=== PATIENT | male | born 1980 | race Caucasian/White ===

== ENCOUNTER 2019-08-09 12:47 | Emergency (ER) | payer OTHER ==
[~2019-08-09] VITALS: Ht 162.6 cm; Wt 67.1 kg
[2019-08-09] MEDS ORDERED: NAPROSYN500 MG PO (13:34)
[2019-08-09 14:06] VITALS: BP 132/81
== END 2019-08-09 13:50 | disposition home or self-care (01) ==
LOC: ER 12:47
DX: L53.9 Erythematous condition, unspecified (principal); M79.632 Pain in left forearm; V89.2XXA Person injured in unspecified motor-vehicle accident, traffic, initial encounter; Y92.89 Other specified places as the place of occurrence of the external cause; Y93.89 Activity, other specified; Y99.8 Other external cause status